=== PATIENT | male | born 1980 | race African-American/Black ===

== ENCOUNTER 2019-03-10 10:31 | Emergency (ER) | payer SELFPAY ==
[~2019-03-10] VITALS: Ht 182.9 cm; Wt 90.3 kg
[2019-03-10 10:36] VITALS: Ht 182.9 cm; Wt 90.3 kg
[2019-03-10 14:21] LABS: UA SPECIFIC GRAVITY >=1.030 (1.005-1.035); microscopic required? YES; urine erythrocyte NEGATIVE (NEGATIVE)
[2019-03-10 14:34] VITALS: BP 147/82
== END 2019-03-10 14:34 | disposition home or self-care (01) ==
LOC: ED 10:31
PROVIDERS: Emergency Medicine
DX: N39.0 Urinary tract infection, site not specified (principal); M79.604 Pain in right leg
CPT/HCPCS: 82962; 87491; 87591